=== PATIENT | male | born 1945 | race Caucasian/White ===

== ENCOUNTER → 2016-11-19 | Outpatient (CLI) | payer OTHER ==
--- NOTE | ~2016-11-19 | 2DMMODE ---
[facility] [place] [address] 2 D/M-MODE ECHOCARDIOGRAM Name: GISELAMICHELLE EASTON Room #: REG [facility]#: [id number] Admission: 11/19/16 Attend Phys: Bobby Rosenthal MD Discharge: Date of : 47 Date of Service: 11/19/16 0957 Report #: [id number] THIS REPORT FOR: //name// APPROVED REPORT EXAM: Comprehensive 2D, Doppler, and color-flow Echocardiogram Patient Location: Out-Patient Blood Pressure: 162/90 mmHg HR: 70 bpm Rhythm: NSR Other Information Study Quality: Good Indications CAD 2D Dimensions RVDd: 40.77 mm LVEF(%): 61.68 (>50%) IVSd: 10.80 (7-11mm) LVOT Diam: 22.27 (18-24mm) LVDd: 45.03 mm PWd: 9.59 (7-11mm) Ascending Aorta: 37.90 mm LVDs: 30.17 (25-40mm) Aortic Root: 39.00 mm Ortiz's LVEF: 61.68 % Volumes Left Atrial Volume (Systole) Single Plane 4CH: 39.14 mL Single Plane 2CH: 40.99 mL LA ESV Index: 22.00 mL/m2 Aortic Valve AoV Peak Atul.: 1.35 m/s AO Peak Gr.: 7.24 mmHg LV Max P.59 mmHg LV Max: 1.28 m/s Mitral Valve MV PHT: 98.01 ms MV E Max Atul.: 0.69 m/s E/A Ratio: 0.7 MV A Atul.: 0.95 m/s MV Decel. Time: 337.95 ms Pulmonary Valve [facility] [place] [address] 2 D/M-MODE ECHOCARDIOGRAM Name: MICHELLE HIGGINS Room #: REG [facility]#: [id number] Admission: 11/19/16 Attend Phys: Bobby Rosenthal MD Discharge: Date of : 47 Date of Service: 11/19/16 0957 Report #: [id number] Peak Atul.: 0.96 m/s PV Peak Gr.: 3.69 mmHg Tricuspid Valve TR Peak Atul.: 1.99 m/s RAP Estimate: 5.00 mmHg TR Peak Gr.: 15.81 mmHg RVSP: 24.00 mmHg Left Ventricle The left ventricle is normal size. There is normal LV segmental wall motion. There is normal left ventricular wall thickness. Left ventricular systolic function is normal. LVEF is 60%. Grade I - abnormal relaxation pattern. Right Ventricle The right ventricle is normal size. The right ventricular systolic function is normal. Atria The left atrium size is normal. The right atrium size is normal. Aortic Valve Aortic valve is mildly calcified. No aortic regurgitation is present. There is no aortic valvular stenosis. Mitral Valve Mitral valve leaflets are mildly thickened. Mild mitral regurgitation. Tricuspid Valve The tricuspid valve is normal in structure. There is trace tricuspid regurgitation. The right atrial pressure is estimated at 5 mmHg. Estimated PAP is 21mmHg. Pulmonic Valve The pulmonary valve is normal in structure. There is no pulmonic valvular regurgitation. Great Vessels Aortic root is mildly dilated. Ascending aorta measures at the upper limits of normal. IVC is normal in size and collapses >50% with inspiration. <Conclusion> The left ventricle is normal size. LVEF is 60%. Aortic valve is mildly calcified. [facility] [address] [place] [address] 2 D/M-MODE ECHOCARDIOGRAM Name: GISELAMICHELLE EASTON Room #: REG [facility]#: [id number] Admission: 11/19/16 Attend Phys: Bobby Rosenthal MD Discharge: Date of : 47 Date of Service: 11/19/16 0957 Report #: [id number] Mitral valve leaflets are mildly thickened. Mild mitral regurgitation. Aortic root is mildly dilated. <ELECTRONICALLY SIGNED> By: Alfredo Morales MD 11/19/16 0957 0957 Alfredo Morales MD /INF
== END ==
LOC: CV 11-12 10:47
DX: I25.10 Atherosclerotic heart disease of native coronary artery without angina pectoris (principal)

== ENCOUNTER → 2018-03-03 | Outpatient (CLI) | payer OTHER ==
--- NOTE | ~2018-03-03 | EXE ---
[facility] [address] [place] [address] STRESS ECHOCARDIOGRAM Name: MICHELLE HIGGINS Room #: REG [facility] [id number] Admission: 03/03/18 Attend Phys: Bobby Rosenthal MD Discharge: Date of : 47 Date of Service: 03/03/18 1428 Report #: [id number] THIS REPORT FOR: //name// APPROVED REPORT Study performed: 03/03/2018 13:03:21 Exam: Stress Echocardiogram Indication: CAD Patient Location: Echo lab Stress Nurse: Elsy Noguera RN Status: routine Ht: 5 ft 8 in HR: 71 bpm BP: 161/91 mmHg Medical History Allergies: No known drug allergies Cardiac Risk Factors: FHX of CAD Procedure The patient underwent an Exercise Stress Test using the Talha Protocol. Blood pressure, heart rate, and EKG were monitored. An Echocardiogram was performed by alarm service technician in four stages in quad fashion. At peak stress, four selected images were obtained and placed side by side with resting images for comparison. Stress Test Details Stress Test: Exercise stress testing was performed using a Talha protocol. HR Resting HR: 71 bpm Max Heart Rate (APMHR): 149 bpm Max HR Achieved: 146 bpm Target HR (85% APMHR): 126 bpm % of APMHR: 97 Recovery HR: 80 bpm HR response to stress: Normal HR response to stress BP Resting BP: 161/91 mmHg Max BP: 210/85 mmHg Recovery BP: 168/72 mmHg ECG Resting ECG: Sinus Rhythm Stress ECG: Sinus Rhythm [facility] [place] [address] [place] [address] STRESS ECHOCARDIOGRAM Name: GISELAMICHELLE MCCORMACK Room #: [facility] [id number] Admission: 03/03/18 Attend Phys: Bobby Rosenthal MD Discharge: Date of : 47 Date of Service: 03/03/18 1428 Report #: [id number] ST Change: Upsloping ST depression Maximum ST Deviation: 1.5 mm Arrhythmia: None Clinical Reason for Termination: Maximal effort Stress Symptoms: Fatigue Exercise duration: 9 min sec Highest Stage Achieved: Stage 3: 3.4 mph at 14% grade. Exercise capacity: 10.10 METs Pre-Stress Echo The resting Echocardiogram showed normal left ventricular contractility with an estimated Ejection Fraction of about 55-60%. Normal wall motion in all segments on baseline images. Post-Stress Echo The stress Echocardiogram showed normal left ventricular contractility with an estimated Ejection Fraction of about 65%. The stress Echocardiogram demonstrated wall motion abnormality in the inferior wall. Clinical No clinical evidence for ischemia. Conclusion Clinical Response: Non-ischemic Exercise Capacity: Average Stress ECG Response: Ischemic Stress Echo Images: Ischemic Other Information Study Quality: Good <ELECTRONICALLY SIGNED> By: Bobby Rosenthal MD 03/03/18 1428 D: 078 1428 Bobby Rosenthal MD /INF
== END ==
LOC: CV 11:36
DX: I25.10 Atherosclerotic heart disease of native coronary artery without angina pectoris (principal); R93.1 Abnormal findings on diagnostic imaging of heart and coronary circulation

== ENCOUNTER → 2019-10-26 | Outpatient (CLI) | payer OTHER ==
[~2019-10-26] MED LIST: ASPIR 8181 M1 PO; EFFIENT10 MG PO; LIPITOR80 MG PO; MELOXICAM15 MG PO; TOPROL XL25 MG PO; TRIAMTERENE/HCT1 CA1 PO
== END ==
LOC: NUC 09:30 → SJCVC 10:39
DX: I25.10 Atherosclerotic heart disease of native coronary artery without angina pectoris (principal); I10 Essential (primary) hypertension; E78.00 Pure hypercholesterolemia, unspecified; R60.9 Edema, unspecified; Z72.89 Other problems related to lifestyle; Z79.82 Long term (current) use of aspirin; Z79.899 Other long term (current) drug therapy

== ENCOUNTER 2019-10-29 07:55 | Outpatient (CLI) | payer OTHER ==
[2019-10-29] VITALS (9 sets, daily range): BP systolic 126–154; BP diastolic 66–79
[~2019-10-29] VITALS: Ht 172.7 cm; Wt 83.8 kg
--- NOTE | ~2019-10-29 | D ---
[facility] [place] [address] DISCHARGE SUMMARY Name: MICHELLE HIGGINS [id number] Admission: 10/29/19 Attend Phys: Bobby Rosenthal MD Discharge: Date of : 47 Report #: [id number] THIS REPORT FOR: cc: José Miguel Thompson MD,Bobby Cotton MD, MD ~ THIS REPORT FOR: //name// CC: Bobby Thompson DATE OF SERVICE: 10/30/2019 FINAL DIAGNOSES: 1. Unstable angina, status post percutaneous coronary intervention. 2. History of coronary artery calcification. 3. Hypertension. 4. Hypercholesterolemia. 5. Chronic edema. HOSPITAL COURSE: Please see the original H and P for full details. The patient had a positive stress test in 2018, elected to continue with medical therapy as he remains clinically asymptomatic. Recently, he developed dyspnea with playing racqueAnywhere to Go. This progressed to just working around the yard. He developed dyspnea with routine activities. Please see the cardiac catheterization report for full details. There was a severe occlusion in the proximal LAD, undergoing placement of a drug-eluting stent. There is moderate disease in a small ramus. He has remained stable overnight and will be discharged home today. He is given instructions for followup in the office. FINAL DISPOSITION: Aspirin 81 mg, Lipitor 80 mg daily, meloxicam, prasugrel 10 mg daily, Toprol-XL 25 and Dyazide once a day. By: 0837 Bobby Rosenthal MD /matt
[2019-10-29 08:39] LABS: HEMOGLOBIN 13.9 gm/dL (14.0-18.0); MCHC 33.1 g/dL (28.0-37.0); MCV 90.6 fL (80.0-100.0); RBC 4.64 mil/uL (4.50-6.00); RDW 13.5 % (10.5-14.5); WBC 5.6 thou/uL (4.0-11.0)
[2019-10-29] MEDS ORDERED: ASPIR 8181 M1 PO (08:41)
[2019-10-29] MEDS ORDERED: LIPITOR80 MG PO (08:42)
[2019-10-29] MEDS ORDERED: MELOXICAM15 MG PO (08:42)
[2019-10-29] MEDS ORDERED: TOPROL XL25 MG PO (08:43)
[2019-10-29] MEDS ORDERED: TRIAMTERENE/HCT1 CA1 PO (08:45)
[2019-10-29 08:47] LABS: CALCIUM 9.1 mg/dL (8.5-10.1); CREATININE 1.1 mg/dL (0.7-1.3)
[2019-10-29 08:50] LABS: POTASSIUM 4.1 mmol/L (3.5-5.1)
--- NOTE | 2019-10-29 09:09 | EKG ---
[facility] [place] [place] [address] ELECTROCARDIOGRAM REPORT Name: MICHELLE HIGGINS Room #: REG [facility]#: [id number] Admission: 10/29/19 Attend Phys: Bobby Rosenthal MD Discharge: Date of : 47 Report #: [id number] THIS REPORT FOR: cc: José Miguel Thompson MD, Michael S. MD Lundgren,Stevie Singer MD [facility] ~ THIS REPORT FOR: //name// [facility] Test Date: 2019-10-29 Test Time: 08:21:45 Pat Name: MICHELLE HIGGINS Department: Room: Gender: Cargo Checker: [facility] : 1945 Requested By: Bobby Rosenthal Order Number: [id number] MD: Stevie Vogt Measurements Intervals [place] Rate: 66 P: 28 [place]: 145 QRS: 34 QRSD: 95 T: 59 QT: 411 QTc: 431 Interpretive Statements Sinus rhythm Abnormal R-wave progression, early transition No previous ECG available for comparison Electronically Signed On 10-29-2019 9:08:11 CHILI MAKER by Stevie Vogt [email or web address] <ELECTRONICALLY SIGNED> By: Stevie Vogt MD, [facility] 03/01/13 908 0 0 Stevie Vogt MD, [facility] /EPI
--- NOTE | 2019-10-29 14:04 | CATHLAB ---
[facility] [place] [address] INVASIVE PROCEDURE REPORT Name: MICHELLE HIGGINS Room #: REG [facility]#: [id number] Admission: 10/29/19 Attend Phys: Bobby Rosenthal MD Discharge: Date of : 47 Report #: [id number] THIS REPORT FOR: cc: José Miguel Thompson MD, Michael S. MD Park, Jin S. MD ~ APPROVED REPORT Study performed: 10/29/2019 09:26:07 Patient Details Patient Status: Out-Patient Room #: The patient is a 74 year-old male Event Personnel Bobby Rosenthal Sterile Process Coordinator, Alli Peña RN, Cristiana Kan RTColt Loya David Monitor Procedures Performed Left Heart Cath w/or w/o Coronaries [id number] [facility] w/wo Plasty Single LAD [id number] Indication Dyspnea, Unstable angina , Positive stress test, Chest pain Risk Factors Hypercholesterolemia, Coronary Artery DiseaseHypertension Procedure Narrative The Right Groin^ was infiltrated with 1% Lidocaine subcutaneous anesthesia. A PINNACLE 4FR Sheath #[id number] sheath was inserted into the RFA^. Coronary angiography was performed using coronary diagnostic catheters. The right coronary system was accessed and visualized with a JR4 catheter. The left coronary system was accessed and visualized with a 4FR JL 5.0 #[id number] catheter. The left ventricle was accessed and visualized with a PIGTAIL catheter. Left ventricular/Aortic Valve gradient assessed via catheter pullback. Left ventriculogram was performed in 30 degree projection. Closure device was deployed with a 6 Fr MYNXGRIP 6/7F #[id number]. The patient tolerated the procedure well and there were no complications associated with the procedure. There was no hematoma. Intraoperative Conscious Sedation Sedation start time: 9.37 Case end Time: [facility] [address] [place] [address] INVASIVE PROCEDURE REPORT Name: GISELAMICHELLE MCCORMACK Room #: REG [facility]#: [id number] Admission: 10/29/19 Attend Phys: Bobby Rosenthal MD Discharge: Date of : 47 Report #: [id number] 10.42 Fentanyl 50 mcg Versed 2 mg Fluoro Time: 16.40 minutes Dose: DAP 01415.00 cGycm2 2738 mGy Contrast Type and Amount: Omnipaque 245 ml Coronary Angiography The patient's coronary anatomy is co- dominant. Diagnostic Cath Left Main The left main artery is a large-caliber vessel, patent with no flow-limiting lesions. LAD The LAD is a moderate size caliber vessel, traversing the anterior wall and wrapping around the apex. The proximal segment is mildly calcified. There is a severe stenosis of the proximal segment, 80%. Diagonal 1 This is a small to moderate size caliber vessel, patent with no flow-limiting lesions. Circumflex This is a moderate size caliber vessel, supplies 2 obtuse marginal arteries. This vessel is codominant. OM1 This is a moderate size caliber vessel, patent with no flow-limiting lesions. OM2 This is a moderate size caliber vessel, patent with no flow-limiting lesions. Right Coronary The RCA supplies one PDA vessel. R PDA The PDA has mild stenosis in the mid segment, 30%. Ramus This is a small to moderate size caliber vessel with a moderate stenosis in the proximal segment, 50%. Left Ventriculography The left ventricle is normal in size with normal contractility. The left ventricular ejection fraction is estimated to be >55%. Hemodynamics The aortic pressure is 150/77 mmHg with a mean of 87 mmHg. The left ventricular pressure is 151/3 mmHg with a mean of mmHg. The left ventricular end diastolic pressure is 14 mmHg. There was no gradient across the aortic valve upon pullback. Pullback from the left ventricle to the aorta revealed no gradient across the aortic valve. PCI Technique Lesion Percutaneous coronary intervention was performed on the proximal left anterior descending artery segment. The lesion stenosis prior to [address] [address] INVASIVE PROCEDURE REPORT Name: MICHELLE HIGGINS Room #: REG [facility]#: [id number] Admission: 10/29/19 Attend Phys: Bobby Rosenthal MD Discharge: Date of : 47 Report #: [id number] intervention was 80% with MILAD 3 flow. A VISTA 6FR 5 #[id number] Guide Catheter was used to engage the ostium. A Luge Wire .014 x 182CM #[id number] Interventional Guidewire was used to cross the lesion. BALLOON DILATION A Balloon catheter Euphora RX 2.5 x 12 #[id number] was inserted and inflated up to 14.00atm for 26seconds. Additional Inflation: 14.00atm for 20seconds. STENT DEPLOYMENT A drug-eluting stent RESOLUTE BRANDEE RX 2.75 X15 #[id number] was inserted and inflated up to 14.00atm for 25seconds. POST STENT DEPLOYMENT BALLOON DILATION A Balloon catheter TREK NC RX 3.0 X 12 #[id number] was inserted and inflated up to 8.00atm for 9seconds. Additional Inflation: 18.00atm for 25seconds. Additional Inflation: 18.00atm for 13seconds. Final angiography reveals 5 % stenosis with MILAD 3 flow. Conclusion 1. Successful insertion of a drug-eluting stent into the proximal LAD segment. 2. There is mild to moderate disease in the PDA and ramus arteries. 3. Normal LV systolic function. 4. Recommend dual antiplatelet therapy and aggressive risk factor management. <ELECTRONICALLY SIGNED> By: Bobby Rosenthal MD 10/29/19 1403 140 140 Bobby Rosenthal MD /INF
--- NOTE | 2019-10-29 15:40 | NUR ---
PT ADMITED FROM [facility]. ADMISSION HX AND ASSESSMENT COMPLETED. VSS. DENIED HAVING PAIN OR DISCOMFORT. RIGHT GROIN INCISION C/D/I. NO HEMATOMA NOTED. POST OP INSTUCTIONS GIVEN TO PT. PT VERBERLISED UNDERSTANDING. NSR ON TELE. WILL CONTINUE TO MONITOR.
--- NOTE | 2019-10-29 16:19 | EKG ---
[facility] [address] ELECTROCARDIOGRAM REPORT Name: MICHELLE HIGGINS Room #: 218-P [facility] M..#: [id number] Admission: 10/29/19 Attend Phys: Bobby Rosenthal MD Discharge: Date of : 47 Report #: [id number] THIS REPORT FOR: cc: José Miguel Thompson MD, Michael S. MD Couchonnal, Luis F. MD ~ THIS REPORT FOR: //name// [facility] Test Date: 2019-10-29 Test Time: 12:00:59 Pat Name: MICHELLE HIGGINS Department: Room: Gender: Membership Director: Norm MARTINEZ : 1945 Requested By: Bobby Rosenthal Order Number: [id number] MD: Arie Austin Measurements Intervals [place] Rate: 53 P: 34 [place]: 147 QRS: 44 QRSD: 92 T: 61 QT: 440 QTc: 414 Interpretive Statements Sinus rhythm Abnormal R-wave progression, early transition Minimal ST elevation, anterior leads Compared to ECG 10/29/2019 08:21:45 ST (T wave) deviation now present Electronically Signed On 10-29-2019 16:17:53 FIRE WARDEN by Arie Austin [email or web address] <ELECTRONICALLY SIGNED> By: Arie Austin MD 10/29/19 1617 1200 1200 Arie Austin MD /EPI
[2019-10-30 00:26] VITALS: BP 151/76
--- NOTE | 2019-10-30 03:13 | NUR ---
ASSESSMENT DOCUMENTED.PT BEEN RESTING IN NO ACUTE DISTRESS.A/OX4.VSS.S/P CARDIAC OSCAR W/INTERVENTIONS.RIGHT GROIN DRESSING CDI.NO HEMATOMA OR ACTIVE BLEEDING NOTED.PT DENIES PAIN OR AY DISTRESS AT THIS TIME.WILL CONT TO MONITOR PER POC.
[2019-10-30 04:06] VITALS: BP 129/70
[2019-10-30 04:21] VITALS: BP 129/70
[2019-10-30 05:26] LABS: HEMATOCRIT 40.1 % (42.0-52.0); HEMOGLOBIN 13.3 gm/dL (14.0-18.0); MCH 30.3 pg (26.0-34.0); MCHC 33.2 g/dL (28.0-37.0); MCV 91.5 fL (80.0-100.0); RBC 4.38 mil/uL (4.50-6.00); RDW 13.4 % (10.5-14.5); WBC 7.5 thou/uL (4.0-11.0)
[2019-10-30 05:52] LABS: ALBUMIN 3.4 g/dL (3.4-5.0); CALCIUM 8.4 mg/dL (8.5-10.1); CREATININE 1.1 mg/dL (0.7-1.3); TOTAL PROTEIN 6.2 g/dL (6.4-8.2)
[2019-10-30 08:08] VITALS: BP 145/84
--- NOTE | 2019-10-30 08:08 | EKG ---
[facility] [place] [address] ELECTROCARDIOGRAM REPORT Name: MICHELLE HIGGINS Room #: 218-[facility] M.R.[facility] [id number] Admission: 10/29/19 Attend Phys: Bobby Rosenthal MD Discharge: Date of : 47 Report #: [id number] THIS REPORT FOR: cc: José Miguel Thompson MD, Michael S. MD Lundgren,Stevie Singer MD [facility] ~ THIS REPORT FOR: //name// [facility] Test Date: 2019-10-30 Test Time: 07:38:47 Pat Name: MICHELLE HIGGINS Department: Room: 218 Gender: M Ladies Suit Operator: RIKKI : 1945 Requested By: Bobby Rosenthal Order Number: [id number] MD: Stevie Vogt Measurements Intervals [place] Rate: 60 P: 39 [place]: 137 QRS: 45 QRSD: 90 T: 63 QT: 415 QTc: 415 Interpretive Statements Sinus rhythm Abnormal R-wave progression, early transition Minimal ST elevation, anterior leads Compared to ECG 10/29/2019 12:00:59 No significant changes Electronically Signed On 10-30-2019 8:07:28 NUT SHELLER by Stevie Vogt [email or web address] <ELECTRONICALLY SIGNED> By: Stevie Vogt MD, [facility] 10/30/19 0807 Stevie Vogt MD, [facility] /EPI
[2019-10-30] MEDS ORDERED: EFFIENT10 MG PO (08:28)
[2019-10-30 09:56] VITALS: BP 145/84
--- NOTE | 2019-10-30 11:11 | NUR ---
ASSESSMENT CHARTED. PT ALERT AND ORIENTED. VSS. DENIED HAVING PAIN OR DISCOMFORT. RIGHT GROIN INCISION C/D/I. NO HEMATOMA NOTED. ORDERS GIVEN TO DISCHARGE PT TO HOME. DISCHARGE INSTRUCTIONS GIVEN TO PT. PT VERBERLISED UNDERSTANDING. PT LEFT THE FACILITY ACCOMPANIED BY THE .
== END 2019-10-30 11:14 | disposition home or self-care (01) ==
LOC: CATH 07:55 → 2N 14:17 → CATH 20:27 → ENTRNSPT 10-30 10:53 → EDTRNSPTSTS 10-30 10:57 → CATH 10-30 11:14
PROVIDERS: Internal Medicine Cardiovascular Disease
DX: I25.110 Atherosclerotic heart disease of native coronary artery with unstable angina pectoris (principal); R94.39 Abnormal result of other cardiovascular function study; R07.9 Chest pain, unspecified; I10 Essential (primary) hypertension; M10.9 Gout, unspecified; E78.00 Pure hypercholesterolemia, unspecified; Z98.890 Other specified postprocedural states; Z79.899 Other long term (current) drug therapy; Z82.49 Family history of ischemic heart disease and other diseases of the circulatory system; Z79.82 Long term (current) use of aspirin
CPT/HCPCS: 10081

== ENCOUNTER → 2019-11-19 | Outpatient (CLI) | payer OTHER | LOC: SJCVC 11:32 | PROVIDERS: ATTEND Internal Medicine Cardiovascular Disease | DX: R94.31 Abnormal electrocardiogram [ECG] [EKG] (principal); I25.10 Atherosclerotic heart disease of native coronary artery without angina pectoris; I10 Essential (primary) hypertension; E78.00 Pure hypercholesterolemia, unspecified; Z79.899 Other long term (current) drug therapy ==

== ENCOUNTER → 2020-11-23 | Outpatient (CLI) | payer OTHER | LOC: SJCVCIMAG 07:31 | PROVIDERS: ATTEND Internal Medicine Cardiovascular Disease | DX: I25.10 Atherosclerotic heart disease of native coronary artery without angina pectoris (principal); R00.1 Bradycardia, unspecified; R94.31 Abnormal electrocardiogram [ECG] [EKG]; E78.00 Pure hypercholesterolemia, unspecified; I10 Essential (primary) hypertension; R60.9 Edema, unspecified; M10.9 Gout, unspecified; Z98.61 Coronary angioplasty status; Z79.82 Long term (current) use of aspirin; Z79.899 Other long term (current) drug therapy; Z82.49 Family history of ischemic heart disease and other diseases of the circulatory system ==

== ENCOUNTER → 2021-05-04 | Outpatient (CLI) | payer OTHER | LOC: SJCVCIMAG 07:42 | PROVIDERS: ATTEND Internal Medicine Cardiovascular Disease | DX: I49.3 Ventricular premature depolarization (principal); R00.0 Tachycardia, unspecified; I25.10 Atherosclerotic heart disease of native coronary artery without angina pectoris; I10 Essential (primary) hypertension; E78.00 Pure hypercholesterolemia, unspecified; R60.9 Edema, unspecified; Z79.82 Long term (current) use of aspirin; Z79.899 Other long term (current) drug therapy; Z72.89 Other problems related to lifestyle; E78.5 Hyperlipidemia, unspecified; Z98.61 Coronary angioplasty status ==

== ENCOUNTER → 2021-05-11 | Outpatient (CLI) | payer OTHER ==
[~2021-05-11] VITALS: Ht 172.7 cm; Wt 84.8 kg
[~2021-05-11] MED LIST changes: +CRESTOR40 MG PO; +VIAGRA100 MG PO
[2021-05-11 08:32] VITALS: BP 149/88
--- NOTE | 2021-05-11 13:31 | CATHLAB ---
[facility] [place] [address] INVASIVE PROCEDURE REPORT Name: MICHELLE HIGGINS Room #: REG [facility]#: [id number] Admission: 05/11/21 Attend Phys: Bobby Rosenthal MD Discharge: Date of : 47 Report #: [id number] THIS REPORT FOR: cc: José Miguel Thompson MD, Michael S. MD Park, Jin S. MD ~ APPROVED REPORT Study performed: 05/11/2021 08:50:29 Patient Details Patient Status: Out-Patient Room #: The patient is a 76 year-old male Event Personnel Bobby Rosenthal Livestock Trader, Vanessa Alejnadre Monitor, Sara Urena RTR ScrubYong Sarah RN tire servicer Performed Art Access - R femoral artery* Left Heart Cath w/or w/o Coronaries [id number] [facility] [address] Initial Mod Sed Same Phys/QHP Gr5y [id number] 95067 Mod Sed Same Phys/QHP Ea 002337 Hemostasis with Manual pressure Indication Dyspnea, Positive stress test Risk Factors Hypercholesterolemia, Coronary Artery DiseaseHypertension Previous Procedures/Diagnoses Previous PCI Procedure Narrative The Right Groin^ was infiltrated with 1% Lidocaine subcutaneous anesthesia. A PINNACLE 4FR Sheath #[id number] sheath was inserted into the RFA^. Coronary angiography was performed using coronary diagnostic catheters. The right coronary system was accessed and visualized with a JR4 catheter. The left coronary system was accessed and visualized with a JL5 catheter. The left ventricle was accessed and visualized with a ANGLE PIG catheter. Hemostasis was obtained with manual pressure following sheath removal without any complications. [facility] [address] [place] [address] INVASIVE PROCEDURE REPORT Name: MICHELLE HIGGINS Room #: REG [facility] [id number] Admission: 05/11/21 Attend Phys: oBbby Rosenthal MD Discharge: Date of : 47 Report #: [id number] Intraoperative Conscious Sedation Sedation start time: 927 Case end Time: 1000 Fentanyl mcg Versed mg Fluoro Time: 3.00 minutes Dose: DAP 5849.50 cGycm2 736 mGy Contrast Type and Amount: Omnipaque 35 ml Coronary Angiography The patient's coronary anatomy is right dominant. Diagnostic Cath Left Main The left main artery is a large-caliber vessel, appears angiographically normal. LAD The LAD is a moderate-sized caliber vessel, traverses the anterior wall and wraps around the apex. There is a patent stent in the proximal segment, with mild restenosis. Diagonal 1 This is a small to moderate-sized caliber vessel, with a moderate ostial stenosis, 40%. Circumflex This is a moderate sized caliber vessel, patent with no flow-limiting lesions. OM1 This is a moderate-sized caliber vessel, patent with no flow-limiting lesions. OM2 This is a small to moderate-sized caliber vessel, patent with no flow-limiting lesions. Right Coronary The RCA is a dominant vessel with minimal plaquing in the proximal segment. R PDA This is a moderate-sized caliber vessel, patent with no flow-limiting lesions. RPLV This is a small to moderate-sized caliber vessel, patent with no flow-limiting lesions. Ramus This is a small to moderate-sized caliber vessel, with a severe stenosis in the proximal segment. This is unchanged from prior procedures. Left Ventriculography Left Ventriculography was not performed. Ejection Fraction was 55-60% based off patient's Nuclear Cardiac Stress Test. An LVEDP was measured and there is no gradient across the outflow tract. Hemodynamics The aortic pressure is 149/76 mmHg with a mean of 105 mmHg. The left ventricular pressure is 112/5 mmHg with a mean of mmHg. The left ventricular end diastolic pressure is 23 mmHg. [facility] [address] [place] [address] INVASIVE PROCEDURE REPORT Name: MICHELLE HIGGINS Scot Room #: REG [facility]#: [id number] Admission: 05/11/21 Attend Phys: Bobby Rosenthal MD Discharge: Date of : 47 Report #: [id number] Conclusion 1. There is a patent stent in the proximal LAD with mild restenosis. 2. There is a severe occlusion in a small to moderate-sized ramus artery. This is unchanged from prior procedures and medical therapy is recommended. 3. There is a moderate stenosis in the first diagonal artery. 4. There is normal LV systolic function. 5. Recommend guideline directed medical therapy. <ELECTRONICALLY SIGNED> By: Bobby Rosenthal MD 05/11/211329 29 29 Bobby Rosenthal MD /INF
== END | disposition home or self-care (01) ==
LOC: CATH 07:37
PROVIDERS: ATTEND Internal Medicine Cardiovascular Disease
DX: R94.39 Abnormal result of other cardiovascular function study (principal); I25.10 Atherosclerotic heart disease of native coronary artery without angina pectoris; R06.00 Dyspnea, unspecified; I10 Essential (primary) hypertension; E78.5 Hyperlipidemia, unspecified; M10.9 Gout, unspecified; Z98.890 Other specified postprocedural states; Z79.899 Other long term (current) drug therapy

== ENCOUNTER → 2021-05-24 | Outpatient (CLI) | payer OTHER | LOC: SJCVC 09:48 | PROVIDERS: ATTEND Internal Medicine Cardiovascular Disease | DX: R00.1 Bradycardia, unspecified (principal); I25.10 Atherosclerotic heart disease of native coronary artery without angina pectoris; I10 Essential (primary) hypertension; E78.00 Pure hypercholesterolemia, unspecified; Z82.49 Family history of ischemic heart disease and other diseases of the circulatory system; Z79.82 Long term (current) use of aspirin; Z79.899 Other long term (current) drug therapy; Z72.89 Other problems related to lifestyle ==